=== PATIENT | female | born 1970 | race Caucasian/White ===

== ENCOUNTER 2016-10-26 18:43 | Emergency (ER) | payer OTHER ==
[2016-10-26 18:52] VITALS: BP 126/88; PULSE 94; TEMP 98.3; BMI 32.2
--- NOTE | 2016-10-26 20:15 | PDOC ---
[id number] ABD PAIN Time Seen by Provider: 10/26/16 19:45 - History of Present Illness Initial Comments: 10/26/16 20:42 CHIEF COMPLAINT: Lower abdominal pain HISTORY OF PRESENT ILLNESS: 46-year-old female with history of PID, 2 D&C, prediabetes, and asthma, presents to ED with pain in his lower abdomen. Patient states that 4 days ago she began feeling this discomfort. "I thought I was ovulating, but then it felt like gas in the stomach like I had after having a c- section or something, now it feels like it's in my ovaries. Even when I sit down it feels like something is ready to pop." She denies any sexual activity in the last 2 years but does report having chlamydia and PID "8-10 years ago." She also reports losing 13 pounds in the 2 months to help control her prediabetes. Her LMP was 10/04. No recent travel or sick contacts. PAST MEDICAL HISTORY: Denies past medical history FAMILY HISTORY: Denies SOCIAL HISTORY: Lives at home with family. Current smoker, 6-7 cigarettes daily. Occasional alcoholuse. Marijuana use once a week. SURGICAL HISTORY: 2 D&C ALLERGIES: No known drug allergies REVIEW OF SYSTEMS General/Constitutional: Intentional weight loss. Denies fever or chills. Denies weakness, weight change. HEENT: Denies change in vision. Denies ear pain or discharge. Denies sore throat. Cardiovascular: Denies chest pain or shortness of breath. Respiratory: Denies cough, wheezing, or hemoptysis. Gastrointestinal: Denies nausea, vomiting, diarrhea or constipation. Denies rectal bleeding. Genitourinary: Denies dysuria, frequency, or change in urination. Musculoskeletal: Denies joint or muscle swelling or pain. Denies neck or back pain. Skin and breasts: Denies rash or easy bruising. Neurologic: Denies headache, vertigo, loss of consciousness, or loss of sensation. Endocrine: Denies increased thirst. Denies abnormal weight change. Hematologic/Lymphatic: Denies anemia, easy bleeding, or history of blood clots. Allergic/Immunologic: Denies hives or skin allergy. Denies latex allergy. PHYSICAL EXAM General Appearance: Well-appearing, appropriately dressed. No apparent distress , no intoxication. HEENT: EOMI, PERRLA, normal ENT inspection, normal voice, TMs normal, pharynx normal. No conjunctival pallor. No photophobia, scleral icterus. Neck: Supple. Trachea midline. No tenderness, rigidity, carotid bruit, stridor , lymphadenopathy, or thyromegaly. Respiratory/Chest: Lungs CTAB. No shortness of breath, chest tenderness, respiratory distress, accessory muscle use. No crackles, rales, rhonchi, stridor , wheezing, dullness Cardiovascular: RRR. S1, S2. No JVD, murmur, bradycardia, tachycardia. Vascular Pulses: Dorsalis-Pedis (R): 2+, Dorsalis-Pedis (L): 2+ Gastrointestinal/Abdominal: Tenderness to RLQ and LLQ on palpation. Normal bowel sounds. Abdomen soft, non-distended. No tenderness or rebound tenderness. No organomegaly, pulsatile mass, guarding, hernia, hepatomegaly, splenomegaly. Pelvic: Left adnexal tenderness vs LLQ tenderness. External genitalia normal without lesions. Vaginal vault is clear without blood or discharge. Cervix is long and closed. No cervical motion tenderness. Uterus is nontender and normal in size. Lymphatic: No adenopathy, tenderness. Musculoskeletal/Extremities: Normal inspection. FROM of all extremities, normal capillary refill. Pelvis Stable. No CVA tenderness. No tenderness to extremities, pedal edema, swelling, erythema or deformity. Integumentary: Appropriate color, dry, warm. No cyanosis, erythema, jaundice or rash Neurologic: heel padder II-XII intact. Fully oriented, alert. Appropriate mood/affect. Motor strength 5/5. No appreciable EOM palsy, facial droop or sensory deficit. 10/27/16 00:17 Past History - Past Medical History Allergies/Adverse Reactions: Allergies Allergy/AdvReac Type Severity Reaction Status Date / Time No Known Drug Allergies Allergy Verified 10/26/16 18:48 peanut Allergy Verified 10/26/16 18:52 Home Medications: Ambulatory Orders No Home Medications 0 dose .ROUTE UTDICT 08/23/13 Ciprofloxacin [Cipro -] 500 mg PO Q12H #20 tablet 10/27/16 Metronidazole 500 mg PO TID #30 tablet 10/27/16 Ondansetron [Zofran *Odt*] 8 mg SL BID PRN #10 od.tablet 10/27/16 Anemia: No Asthma: Yes Cancer: No Cardiac Disorders: No CVA: No COPD: No CHF: No Dementia: No Diabetes: Yes (H/O 2010, BS UNDER CONTROL WITH DIET/EXERCISE) GI Disorders: No Disorders: No HTN: No Hypercholesterolemia: No Liver Disease: Yes ("fatty liver") Psychiatric Problems: Yes (ANXIETY) Seizures: No Thyroid Disease: No - Surgical History Abdominal Surgery: Yes (D&C FOR MISSED ABX2) Appendectomy: No Cardiac Surgery: No Cholecystectomy: No Lung Surgery: No Neurologic Surgery: No Orthopedic Surgery: No - Reproductive History (#): 11 Para: 5 Therapeutic (s) & number: Yes (3) Spontaneous : 3 - Immunization History Immunization Up to Date: Yes - Psycho/Social/Smoking Cessation Hx Anxiety: No Suicidal Ideation: No Smoking Status: Yes Smoking History: Current every day smoker Have you smoked in the past 12 months: Yes Number of Cigarettes Smoked Daily: 6 If you are a former smoker, when did you quit?: 2004 Information on smoking cessation initiated: Yes 'Breaking Loose' booklet given: 10/26/16 Hx Alcohol Use: No Drug/Substance Use Hx: No Substance Use Type: None Hx Substance Use Treatment: No *Physical Exam - Vital Signs Last Vital Signs Temp Pulse Resp BP Pulse Ox 98.3 F 94 H 18 126/88 100 10/26/16 18:48 10/26/16 18:48 10/26/16 18:48 10/26/16 18:48 10/26/16 18:48 ED Treatment Course - LABORATORY CBC & Chemistry Diagram: 10/26/16 20:37 Medical Decision Making - Medical Decision Making 10/27/16 22:17 6-year-old female with history of PID, 2 D&C, prediabetes, and asthma, presents to ED with pain in his lower abdomen. -CBC, CMP, lipase, UA, UCx, Upreg -Abdomen & pelvis CT with contrast 10/27/16 11:45 Urine was not sent. Patient agitated, states she would like to leave AMA. Advised patient to remain in ED for CT, will order serum preg for quick results to send patient to CT. Serum negative. Patient to go to CT. CT suggestive of dievrticulitis. Will dischrage to home with Flagyl and Cipro. Advised patient to take meds as prescribed and f/u with GI. Advised patient of signs and symptoms for return to ED; patient verbalized understnading and agrees to plan. *DC/Admit/Observation/Transfer Diagnosis at time of Disposition: Diverticulitis Qualifiers: Diverticulitis site: unspecified part of intestinal tract Diverticulitis bleeding: without bleeding Diverticulitis complication: without perforation or abscess Qualified Code(s): K57.92 - Diverticulitis of intestine, part unspecified, without perforation or abscess without bleeding - Discharge Dispostion Disposition: HOME Admit: No - Prescriptions Prescriptions: Ciprofloxacin [Cipro -] 500 mg PO Q12H #20 tablet Metronidazole 500 mg PO TID #30 tablet Ondansetron [Zofran *Odt*] 8 mg SL BID PRN #10 od.tablet PRN Reason: Nausea And/Or Vomiting - Referrals Referrals: Femi Javier [Primary Care Provider] - - Patient Instructions Printed Discharge Instructions: DI for Diverticulitis Additional Instructions: Please follow up with your primary care doctor next week. If you experience fever, nausea, vomiting, diarrhea, rectal bleeding, dark stool, or any new or worsening symptoms, please return to the ER immediately.
--- NOTE | 2016-10-26 20:35 | PDOC ---
*Physical Exam - Vital Signs Last Vital Signs Temp Pulse Resp BP Pulse Ox 98.3 F 94 H 18 126/88 100 10/26/16 18:48 10/26/16 18:48 10/26/16 18:48 10/26/16 18:48 10/26/16 18:48 ED Treatment Course - LABORATORY CBC & Chemistry Diagram: 10/26/16 20:37 Medical Decision Making - Medical Decision Making 10/26/16 20:34 Pt seen by the Advanced Practice Provider under my direct supervision Ancillary studies reviewed I agree with plan as outlined by the Advanced Practice Provider MILES Perez *DC/Admit/Observation/Transfer Diagnosis at time of Disposition: Diverticulitis - Discharge Dispostion Disposition: HOME - Prescriptions Prescriptions: Ciprofloxacin [Cipro -] 500 mg PO Q12H #20 tablet Metronidazole 500 mg PO TID #30 tablet Ondansetron [Zofran *Odt*] 8 mg SL BID PRN #10 od.tablet PRN Reason: Nausea And/Or Vomiting - Referrals Referrals: Femi Javier [Primary Care Provider] - - Patient Instructions Printed Discharge Instructions: DI for Diverticulitis Additional Instructions: Please follow up with your primary care doctor next week. If you experience fever, nausea, vomiting, diarrhea, rectal bleeding, dark stool, or any new or worsening symptoms, please return to the ER immediately.
[2016-10-26 21:09] LABS: ALBUMIN 3.5 g/dl (3.4-5.0); ANION GAP 7 (8-16); CO2 27 mmol/L (21-32); GLUCOSE,RANDOM 100 mg/dL (74-106)
[2016-10-26 21:12] LABS: ALK PHOS 67 U/L (45-117); BILIRUBIN,TOTAL 0.5 mg/dL (0.2-1.0); CREATININE 0.5 mg/dL (0.55-1.02); SGOT/AST 11 U/L (15-37); SGPT/ALT 25 U/L (12-78)
== END 2016-10-27 01:36 | disposition home or self-care (01) ==
LOC: JER 18:43
DX: K57.20 Diverticulitis of large intestine with perforation and abscess without bleeding (principal); R73.03 Prediabetes; J45.909 Unspecified asthma, uncomplicated; Z87.42 Personal history of other diseases of the female genital tract
CPT/HCPCS: 36415; 74177-TC; 80053; 83690; 84702; 84703; 87491; 87591; 99282-25

== ENCOUNTER 2017-04-26 14:52 | Emergency (ER) | payer OTHER ==
[2017-04-26 15:08] VITALS: BMI 33.6
[2017-04-26 15:50] VITALS: PULSE 74
--- NOTE | 2017-04-26 16:32 | PDOC ---
Attending Attestation - Resident Resident Name: Lobo Mcfarland - ED Attending Attestation I have performed the following: I have examined & evaluated the patient, The case was reviewed & discussed with the resident, I agree w/resident's findings & plan, Exceptions are as noted - HPI HPI: 04/26/17 16:29 46y F hx of asthma presents with 3 days of itnermittent palpitations, pt feels a skipped beat occasionally throughout the day. Pt denies associated chest pain , sob, lightheadedness, diarrhea, abd pain, back pain, headache, fever/chills, melena, bpr, weight loss, sweats, hairloss increased vaginal bleeding. Pt had workup from cardiology with holter monitor for the same sypmtoms that was negative. Constitutional - no reported Fever, Chills, HEENT: no reported vision changes, sore throat Respiratory: no reported cough, sob, hemoptysis Cardiac: +palpitations no reported chest pain, , light headedness, leg swelling Abd/GI: no reported abd pain, nausea, vomiting, blood per rectum, melena, diarrhea : no reported dysuria, frequency, discharge Musculskelatal - no reported back pain, joint swelling skin - no reported bruising, erythema, rash neurological: no reported headache, numbness, focal weakness, tingling, ataxia, hematologic: no reported anemia, easy bruising, easy bleeding GENERAL: The patient is awake, alert, and fully oriented, Nontoxic - in no acute distress. HEAD: Normocephalic, atraumatic. EYES: extraocular movements intact, sclera anicteric, conjunctiva clear. ENT: Normal voice, Moist mucous membranes. NECK: Normal range of motion, supple LUNGS: Breath sounds equal, clear to auscultation bilaterally. No wheezes, no rhonchi, no rales. HEART: Regular rate and rhythm, normal S1 and S2 without murmur, rub or gallop. ABDOMEN: Soft, nontender, normoactive bowel sounds. No guarding, no rebound. . No CVA tenderness EXTREMITIES: Normal range of motion, no edema. No clubbing or cyanosis. No cords, erythema, or tenderness. NEUROLOGICAL: No facial assymetry, Normal speech, moving all 4 extremities spontaneously and symmetrically PSYCH: Normal mood, normal affect. SKIN: Warm, Dry, normal turgor, - Physicial Exam PE: 04/26/17 20:01 see abovfe - Medical Decision Making 04/26/17 20:01 no signs of anemia, metabolic derengement ekg wnl withotu signs of arrythmia no cp/exertional symptoms to suggest angina cp pt agrees with PMD/cards fu for holter defer labs for now return precautions were discussed Heart Score/ECG Review - ECG Impressions Comment:: 04/26/17 16:48 Twelve-lead EKG was performed and reviewed by me. There is normal sinus rhythm with a normal rate. Rate of 79 The axis is normal. The intervals are normal. There is normal R wave progression There are no ST or T wave abnormalities. Impression: Normal twelve-lead EKG
--- NOTE | 2017-04-26 16:48 | PDOC ---
History of Present Illness - General Chief Complaint: Palpitations Stated Complaint: PALPITATIONS Time Seen by Provider: 04/26/17 15:20 - History of Present Illness Initial Comments: 04/26/17 16:49 46 year old female with PMH of asthma, bipolar disorder, and anxiety disorder presenting with palpitations for the past two days. She describes these palpitations that she first experienced 3 years ago as random skipped heart beats that are more frequent before going to bed and that she notices at night. Denies any lightheadeness, presnycopal sensation, chest pain, or other sick symptoms. She has been evaluated on a holter monitor three years ago without finding any cardiac issue and has been symptom free until just two days ago. Of note her children are returning home this weekend and she has been preparing for them to return. Her PCP is Dr. Javier and breakdown mill operator is Akash. Past History - Past Medical History Allergies/Adverse Reactions: Allergies Allergy/AdvReac Type Severity Reaction Status Date / Time No Known Drug Allergies Allergy Verified 04/26/17 15:05 peanut Allergy Verified 04/26/17 15:05 Home Medications: Ambulatory Orders No Home Medications 0 dose .ROUTE UTDICT 08/23/13 Ciprofloxacin [Cipro -] 500 mg PO Q12H #20 tablet 10/27/16 Metronidazole 500 mg PO TID #30 tablet 10/27/16 Ondansetron [Zofran *Odt*] 8 mg SL BID PRN #10 od.tablet 10/27/16 Anemia: No Asthma: Yes Cancer: No Cardiac Disorders: No CVA: No COPD: No CHF: No Dementia: No Diabetes: Yes (H/O 2010, BS UNDER CONTROL WITH DIET/EXERCISE) GI Disorders: No Disorders: No HTN: No Hypercholesterolemia: No Liver Disease: Yes ("fatty liver") Psychiatric Problems: Yes (ANXIETY) Seizures: No Thyroid Disease: No - Surgical History Abdominal Surgery: Yes (D&C FOR MISSED ABX2) Appendectomy: No Cardiac Surgery: No Cholecystectomy: No Lung Surgery: No Neurologic Surgery: No Orthopedic Surgery: No - Reproductive History (#): 11 Para: 5 Therapeutic (s) & number: Yes (3) Spontaneous : 3 - Immunization History Immunization Up to Date: Yes - Psycho/Social/Smoking Cessation Hx Anxiety: No Suicidal Ideation: No Smoking Status: Yes Smoking History: Current every day smoker Have you smoked in the past 12 months: Yes Number of Cigarettes Smoked Daily: 6 If you are a former smoker, when did you quit?: 2004 Information on smoking cessation initiated: No 'Breaking Loose' booklet given: 10/26/16 Hx Alcohol Use: No Drug/Substance Use Hx: No Substance Use Type: None Hx Substance Use Treatment: No Review of Systems - Review of Systems Constitutional: No: Chills, Diaphoresis, Fever HEENTM: No: Blurred Vision, Tearing, Recent change in vision Respiratory: No: Cough, Orthopnea, Shortness of Breath Cardiac (ROS): No: Chest Pain, Irregular Heart Rate, Lightheadedness ABD/GI: No: Abdominal Distended, Constipated, Diarrhea, Difficulty Swallowing, Nausea, Poor Appetite : No: Burning, Dysuria, Hematuria Musculoskeletal: No: Back Pain, Joint Pain, Muscle Pain Integumentary: No: Bruising, Change in Color, Erythema Neurological: No: Headache, Numbness, Paresthesia Psychiatric: Yes: Anxiety. No: Change in Appetite Endocrine: No: Excessive Sweating, Flushing Hematologic/Lymphatic: No: Anemia, Easy Bruising *Physical Exam - Vital Signs Last Vital Signs Temp Pulse Resp BP Pulse Ox 99 F 74 16 142/73 98 04/26/17 15:06 04/26/17 15:46 04/26/17 15:46 04/26/17 15:06 04/26/17 15:46 - Physical Exam General Appearance: Yes: Nourished, Appropriately Dressed. No: Apparent Distress HEENT: positive: EOMI, ЕЛЕНА, Normal Voice Neck: positive: Trachea midline. negative: Tender Respiratory/Chest: positive: Lungs Clear, Normal Breath Sounds. negative: Chest Tender, Respiratory Distress, Accessory Muscle Use Cardiovascular: positive: Regular Rhythm, Regular Rate, S1, S2. negative: Edema , JVD Gastrointestinal/Abdominal: positive: Normal Bowel Sounds, Flat, Soft. negative : Tender, Organomegaly, Pulsatile Mass Musculoskeletal: positive: Normal Inspection, CVA Tenderness Extremity: positive: Normal Inspection, Normal Range of Motion Neurologic: positive: Fully Oriented, Alert, Normal Mood/Affect Medical Decision Making - Medical Decision Making 46 year old healthy female presenting with acute on chronic palpitations. These occurred last approximately three years ago and have no associated symptoms. She came in because they have been consistent over the past two days. EKG and tele monitor have not showed PVCs or any other arrythmia. We will discharge her with follow up with her PCP and breakdown mill operator for another Holter monitor evaluation. 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 04/26/17 16:59 *DC/Admit/Observation/Transfer Diagnosis at time of Disposition: Palpitations - Discharge Dispostion Disposition: HOME Condition at time of disposition: Improved Admit: No - Referrals Referrals: Femi Javier [Primary Care Provider] - Juno Guaman MD [Staff Physician] - - Patient Instructions Printed Discharge Instructions: DI for Palpitations Additional Instructions: You were seen because you had some heart palpitations that we looked at on an EKG and did not see any evidence of abnormal heart rhythm. We believe that you should follow up with your breakdown mill operator for this. Please return if your heart palpitations get worse or you have new symptoms. - Attestations Physician Attestion: 04/26/17 16:59 I, Dr. Lobo Mcfarland, attest that this document has been prepared under my direction and personally reviewed by me in its entirety. I further attest, that it accurately reflects all work, treatment, procedures and medical decision -making performed by me. 04/26/17 17:06
[2017-04-26 17:11] VITALS: BP 123/72; TEMP 98.6
--- NOTE | 2017-04-28 13:57 | EKG ---
Test Reason : Blood Pressure : / mmHG Vent. Rate : 079 BPM Atrial Rate : 079 BPM P-R Int : 126 ms QRS Dur : 084 ms QT Int : 382 ms P-R-T Axes : 025 010 019 degrees QTc Int : 438 ms NORMAL SINUS RHYTHM NORMAL ECG WHEN COMPARED WITH ECG OF 23-AUG-2013 07:40, NO SIGNIFICANT CHANGE WAS FOUND Confirmed by DAV JAMES MD ([id number]) on 04/28/2017 1:56:50 PM Referred By: Confirmed By:DAV JAMES MD
== END 2017-04-26 17:11 | disposition home or self-care (01) ==
LOC: JER 14:52
DX: R00.2 Palpitations (principal); F17.210 Nicotine dependence, cigarettes, uncomplicated; K76.0 Fatty (change of) liver, not elsewhere classified; F41.9 Anxiety disorder, unspecified; J45.909 Unspecified asthma, uncomplicated; E11.9 Type 2 diabetes mellitus without complications
CPT/HCPCS: 93005; 93010; 99283-25

== ENCOUNTER 2017-07-24 10:21 | Emergency (ER) | payer OTHER ==
[2017-07-24 10:28] VITALS: BP 131/71; PULSE 95; TEMP 99; BMI 32.5
--- NOTE | 2017-07-24 11:10 | PDOC ---
History of Present Illness - General Chief Complaint: Ear Problem Stated Complaint: EAR PAIN Time Seen by Provider: 07/24/17 10:46 History Source: Patient Exam Limitations: No Limitations - History of Present Illness Initial Comments: 07/24/17 11:02 Patient is a 46-year-old female, no significant medical history currently on no medication presents with bilateral ear pain feels that ear canals swelling[place] Past Medical History: Denies. Allergies: No known allergies Medications: Family History: Non-contributory Social History: Denies smoking, alcohol use, or IVDU Review of Systems GENERAL/CONSTITUTIONAL: No fever or chills. No weakness. No weight change. HEAD, EYES, EARS, NOSE AND THROAT: No change in vision. Bilateral ear pain with no discharge. No sore throat. CARDIOVASCULAR: No chest pain or shortness of breath. RESPIRATORY: No cough, wheezing, or hemoptysis. GASTROINTESTINAL: No nausea, vomiting, diarrhea or constipation. No rectal bleeding. GENITOURINARY: No dysuria, frequency, or change in urination. MUSCULOSKELETAL: No joint or muscle swelling or pain. No neck or back pain. SKIN AND BREASTS: No rash or easy bruising. NEUROLOGIC: No headache, vertigo, loss of consciousness, or loss of sensation. PSYCHIATRIC: No depression or anxiety. ENDOCRINE: No increased thirst. No abnormal weight change. HEMATOLOGIC/LYMPHATIC: No anemia, easy bleeding, or history of blood clots. ALLERGIC/IMMUNOLOGIC: No hives or skin allergy. No latex allergy. Physical Exam: GENERAL: The patient is awake, alert, and fully oriented, in no acute distress. HEAD: Normal with no signs of trauma. EYES: Pupils equal, round and reactive to light, extraocular movements intact, sclera anicteric, conjunctiva clear. ENT: Bilateral ear canal edema, nares patent, oropharynx clear without exudates. Moist mucous membranes. No uvula deviation NECK: Normal range of motion, supple without lymphadenopathy, JVD, or masses. LUNGS: Breath sounds equal, clear to auscultation bilaterally. No wheezes, and no crackles. HEART: Regular rate and rhythm, normal S1 and S2 without murmur, rub or gallop. ABDOMEN: Soft, nontender, normoactive bowel sounds. No guarding, no rebound. No masses. No bruising or abrasions MUSCULOSKELETAL: Normal range of motion, no edema. No clubbing or cyanosis. No cords, erythema, or tenderness. No CVA Tenderness with fist. NEUROLOGICAL: Cranial nerves II through XII grossly intact. Normal speech, normal gait. SKIN: Warm, Dry, normal turgor, no rashes or lesions noted. 07/24/17 11:35 Past History - Past Medical History Allergies/Adverse Reactions: Allergies Allergy/AdvReac Type Severity Reaction Status Date / Time No Known Drug Allergies Allergy Verified 07/24/17 10:28 peanut Allergy Verified 07/24/17 10:28 Home Medications: Ambulatory Orders Amox-Tr/K Cl [Augmentin - 875Mg Tablet] 1 tab PO BID #14 tablet 07/24/17 Ciprofloxacin HCl/Dexameth [Ciprodex Otic Suspension] 3 drop AU BID #1 bottle Anemia: No Asthma: Yes Cancer: No Cardiac Disorders: No CVA: No COPD: No CHF: No Dementia: No Diabetes: Yes (H/O 2010, BS UNDER CONTROL WITH DIET/EXERCISE) GI Disorders: No Disorders: No HTN: No Hypercholesterolemia: No Liver Disease: Yes ("fatty liver") Psychiatric Problems: Yes (ANXIETY) Seizures: No Thyroid Disease: No - Surgical History Abdominal Surgery: Yes (D&C FOR MISSED ABX2) Appendectomy: No Cardiac Surgery: No Cholecystectomy: No Lung Surgery: No Neurologic Surgery: No Orthopedic Surgery: No - Reproductive History (#): 11 Para: 5 Therapeutic (s) & number: Yes (3) Spontaneous : 3 - Immunization History Immunization Up to Date: Yes - Suicide/Smoking/Psychosocial Hx Smoking Status: Yes Smoking History: Current every day smoker Have you smoked in the past 12 months: Yes Number of Cigarettes Smoked Daily: 5 If you are a former smoker, when did you quit?: 2004 Information on smoking cessation initiated: No 'Breaking Loose' booklet given: 07/24/17 Hx Alcohol Use: No Drug/Substance Use Hx: No Substance Use Type: None Hx Substance Use Treatment: No *Physical Exam - Vital Signs Last Vital Signs Temp Pulse Resp BP Pulse Ox 99 F 95 H 18 131/71 98 07/24/17 10:25 07/24/17 10:25 07/24/17 10:25 07/24/17 10:25 07/24/17 10:25 Medical Decision Making - Medical Decision Making 07/24/17 11:10 A/P: Patient here with bilateral otitis externa, will DC patient on Cipro based eardrops and Augmentin because of severity in bilateral canals. Follow-up with ENT. I discussed the physical exam findings, ancillary test results and final diagnoses with the patient. I answered all of the patient's questions. The patient was satisfied with the care received and felt comfortable with the discharge plan and treatment plan. The patient will call to arrange follow-up and will return to the Emergency Department with any new, persistent or worsening symptoms. 07/24/17 11:35 *DC/Admit/Observation/Transfer Diagnosis at time of Disposition: Otitis externa Qualifiers: Otitis externa type: swimmer's ear Chronicity: acute Laterality: bilateral Qualified Code(s): H60.333 - Swimmer's ear, bilateral - Discharge Dispostion Disposition: HOME Condition at time of disposition: Good Admit: No - Prescriptions Prescriptions: Amox-Tr/K Cl [Augmentin - 875Mg Tablet] 1 tab PO BID #14 tablet Ciprofloxacin HCl/Dexameth [Ciprodex Otic Suspension] 3 drop AU BID #1 bottle - Referrals Referrals: Peña Christie MD [Staff Physician] - - Patient Instructions Printed Discharge Instructions: DI for Otitis Externa - Post Discharge Activity Forms/Work/School Notes: Back to Work
== END 2017-07-24 11:14 | disposition home or self-care (01) ==
LOC: JERFT 10:21
DX: H60.333 Swimmer's ear, bilateral (principal); F17.210 Nicotine dependence, cigarettes, uncomplicated; E11.9 Type 2 diabetes mellitus without complications; F41.9 Anxiety disorder, unspecified; J45.909 Unspecified asthma, uncomplicated
CPT/HCPCS: 99281-25

== ENCOUNTER 2017-08-03 09:40 | Emergency (ER) | payer OTHER ==
[2017-08-03 09:49] VITALS: BP 144/77; PULSE 102; TEMP 98.7; BMI 31.9
[2017-08-03] MEDS ORDERED: predniSONE 20 MG TABLET (UD) PO ONE (10:23)
[2017-08-03] MEDS ORDERED: ALBUTEROL SO4 2.5/IPRATROPIUM 0.5 INH SOL 3 ML VIAL.NEB. NEB ONE (10:23)
--- NOTE | 2017-08-03 10:24 | PDOC ---
History of Present Illness - General Chief Complaint: Respiratory Stated Complaint: SOB (ASTHMA) Time Seen by Provider: 08/03/17 10:01 History Source: Patient Exam Limitations: No Limitations - History of Present Illness Initial Comments: 08/03/17 10:26 My chief complaint: Productive cough, wheezing, shortness of breath 3 days History of present illness: Patient is a 46-year-old female with a history of asthma, anxiety, diet-controlled diabetes, fatty liver here today complaining of productive cough with greenish phlegm, wheezing, shortness of breath even at rest for the last 3 days. Patient reports that she's been using the nebulizer every 4 hours and the pump in between nebulizer treatments with out relief of symptoms. Patient denies any fever, nausea vomiting diarrhea. Patient reports that her sister was sick with similar symptoms. Patient denies any chance of has had no relations for 2 years. Timing/Duration: getting worse (3 days ) Severity: moderate Associated Symptoms: reports: cough (productive green), shortness of breath Past History - Past Medical History Allergies/Adverse Reactions: Allergies Allergy/AdvReac Type Severity Reaction Status Date / Time No Known Drug Allergies Allergy Verified 08/03/17 09:49 peanut Allergy Verified 08/03/17 09:49 Home Medications: Ambulatory Orders Albuterol 0.083% Nebulizer Aimee [Ventolin 0.083% Nebulizer Soln -] 1 neb NEB Q4H PRN #1 vial 08/03/17 Albuterol Sulfate Inhaler - [Ventolin HFA Inhaler -] 2 inh PO Q4H PRN #1 inh Azithromycin [Zithromax 250mg Tablets -] 250 mg PO UTDICT #6 tab 08/03/17 Prednisone [Deltasone -] 20 mg PO BID #8 tablet 08/03/17 Anemia: No Asthma: Yes Cancer: No Cardiac Disorders: No CVA: No COPD: No CHF: No Dementia: No Diabetes: Yes (H/O 2010, BS UNDER CONTROL WITH DIET/EXERCISE) GI Disorders: No Disorders: No HTN: No Hypercholesterolemia: No Liver Disease: Yes ("fatty liver") Psychiatric Problems: Yes (ANXIETY) Seizures: No Thyroid Disease: No - Surgical History Abdominal Surgery: Yes (D&C FOR MISSED ABX2) Appendectomy: No Cardiac Surgery: No Cholecystectomy: No Lung Surgery: No Neurologic Surgery: No Orthopedic Surgery: No - Reproductive History (#): 11 Para: 5 Therapeutic (s) & number: Yes (3) Spontaneous : 3 - Immunization History Immunization Up to Date: Yes - Suicide/Smoking/Psychosocial Hx Smoking Status: Yes Smoking History: Former smoker Have you smoked in the past 12 months: Yes Number of Cigarettes Smoked Daily: 5 If you are a former smoker, when did you quit?: 1 DAY AGO Information on smoking cessation initiated: Yes 'Breaking Loose' booklet given: 08/03/17 Hx Alcohol Use: No Drug/Substance Use Hx: No Substance Use Type: None Hx Substance Use Treatment: No Review of Systems - Review of Systems Able to Perform ROS?: Yes Constitutional: No: Symptoms Reported HEENTM: No: Symptoms Reported Respiratory: Yes: Shortness of Breath, SOB with Exertion, SOB at Rest, Wheezing , Productive cough (greenish for 3 days). No: Orthopnea, Stridor Cardiac (ROS): No: Symptoms Reported ABD/GI: No: Symptoms Reported : No: Symptoms Reported Musculoskeletal: No: Symptoms Reported Integumentary: No: Symptoms Reported Neurological: No: Symptoms reported *Physical Exam - Vital Signs Last Vital Signs Temp Pulse Resp BP Pulse Ox 98.7 F 102 H 22 144/77 98 08/03/17 09:46 08/03/17 09:46 08/03/17 09:46 08/03/17 09:46 08/03/17 09:46 - Physical Exam General Appearance: Yes: Appropriately Dressed HEENT: positive: Normal ENT Inspection Neck: negative: Lymphadenopathy (R), Lymphadenopathy (L) Respiratory/Chest: positive: Crackles, Rhonchi, Wheezing (diffuse). negative: Accessory Muscle Use, Labored Respiration Cardiovascular: positive: Regular Rhythm, Regular Rate, S1, S2 Integumentary: positive: Normal Color Neurologic: positive: Alert, Normal Response Medical Decision Making - Medical Decision Making 08/03/17 10:28 Patient is a 46-year-old female with a history of asthma, anxiety, diet- controlled diabetes, fatty liver here today complaining of productive cough with greenish phlegm, wheezing, shortness of breath even at rest for the last 3 days. Patient reports that she's been using the nebulizer every 4 hours and the pump in between nebulizer treatments with out relief of symptoms. Patient denies any fever, nausea vomiting diarrhea. Patient reports that her sister was sick with similar symptoms. Patient denies any chance of has had no relations for 2 years. Asthma exacerbation Plan: DuoNeb now Prednisone 60 mg by mouth now then 20 mg twice a day for following 4 days Azithromycin 250 mg 2 tabs today then 1 tab daily for following 4 days XRAY CHEST PA/LATERAL NO INFILTRATE NOTED PER DR. CARDENAS 08/03/17 11:35 ALBUTEROL HFA 2 PUFFS EVERY 4 HRS PRH WHEEZING/SOB 08/03/17 13:30 lungs CTA b/l after neb *DC/Admit/Observation/Transfer Diagnosis at time of Disposition: Asthma exacerbation Qualifiers: Asthma severity: unspecified severity Asthma persistence: unspecified Qualified Code(s): J45.901 - Unspecified asthma with (acute) exacerbation - Discharge Dispostion Disposition: HOME Condition at time of disposition: Stable - Prescriptions Prescriptions: Prednisone [Deltasone -] 20 mg PO BID #8 tablet Albuterol 0.083% Nebulizer Aimee [Ventolin 0.083% Nebulizer Soln -] 1 neb NEB Q4H PRN #1 vial PRN Reason: Short Of Breath/Wheezing Albuterol Sulfate Inhaler - [Ventolin HFA Inhaler -] 2 inh PO Q4H PRN #1 inh PRN Reason: Short Of Breath/Wheezing Azithromycin [Zithromax 250mg Tablets -] 250 mg PO UTDICT #6 tab - Referrals Referrals: Femi Javier [Primary Care Provider] - - Patient Instructions Additional Instructions: DRINK A lot of fluids and rest Follow-up with your primary care provider within days. Return to emergency room if any difficulty breathing Patient voiced understanding of discharge instructions and all questions were answered
[2017-08-03] MEDS ORDERED: predniSONE 20 MG TABLET (UD) ONE (10:34)
== END 2017-08-03 11:48 | disposition home or self-care (01) ==
LOC: JERFT 09:40
PROC: 3E0F7GC Introduction of Other Therapeutic Substance into Respiratory Tract, Via Natural or Artificial Opening (ICD-10-PCS; principal; 2017-08-03)
DX: J45.901 Unspecified asthma with (acute) exacerbation (principal); E11.9 Type 2 diabetes mellitus without complications; F41.9 Anxiety disorder, unspecified; K76.0 Fatty (change of) liver, not elsewhere classified
CPT/HCPCS: 71020-TC; 94640; 99281-25

== ENCOUNTER 2017-12-17 09:24 | Emergency (ER) | payer OTHER ==
[2017-12-17 09:52] VITALS: BMI 33.5
[2017-12-17] MEDS ORDERED: KETOROLAC TROMETHAMINE 60 MG/2 ML VIAL IM ONE (10:40)
[2017-12-17] MEDS ORDERED: traMADol HCL 50 MG TABLET PO ONE (10:40)
[2017-12-17] MEDS ORDERED: KETOROLAC TROMETHAMINE 60 MG/2 ML VIAL ONE (10:42)
[2017-12-17] MEDS ORDERED: traMADol HCL 50 MG TABLET ONE (10:42)
--- NOTE | 2017-12-17 10:51 | PDOC ---
History of Present Illness - General History Source: Patient Exam Limitations: No Limitations - History of Present Illness Initial Comments: 12/17/17 11:24 The patient 47-year-old female, with a significant past medical history of asthma and sciatica, who presents to the ED with 2 days of worsening right- sided mid back pain. The patient states her pain began 2 days after a deep tissue massage. The patient initially noted some discomfort in the area which has progressively worsened since then. The patient rates the pain a 10/10 in severity, exacerbated with changes in position (arm lifting and torso twisting) and deep inspiration, and accompanied by shortness of breath (only when standing upright). She reports taking 800mg of Motrin before bed last night, with no relief of her symptoms. The patient denies any fever, chills, nausea, vomiting, diarrhea, or abdominal pain. Denies any urinary changes. Denies any chest pain. Allergies: NKDA, peanuts, shellfish derived Surgical History: D&C for 2 missed abortions Social History: No reported tobacco, alcohol, or drug use. PCP: Dr. Femi Javier <Concetta Reagan - Last Filed: 12/17/17 11:25> <Maurizio Marte - Last Filed: 12/17/17 12:40> - General Chief Complaint: Back Pain Stated Complaint: RT SIDE PAIN/ SOB Time Seen by Provider: 12/17/17 10:04 Past History <Concetta Reagan - Last Filed: 12/17/17 11:25> - Past Medical History Anemia: No Asthma: Yes Cancer: No Cardiac Disorders: No CVA: No COPD: No CHF: No Dementia: No Diabetes: Yes (H/O 2010, BS UNDER CONTROL WITH DIET/EXERCISE) GI Disorders: No Disorders: No HTN: No Hypercholesterolemia: No Liver Disease: Yes ("fatty liver") Psychiatric Problems: Yes (ANXIETY) Seizures: No Thyroid Disease: No - Surgical History Abdominal Surgery: Yes (D&C FOR MISSED ABX2) Appendectomy: No Cardiac Surgery: No Cholecystectomy: No Lung Surgery: No Neurologic Surgery: No Orthopedic Surgery: No - Reproductive History (#): 11 Para: 5 Therapeutic (s) & number: Yes (3) Spontaneous : 3 - Immunization History Immunization Up to Date: Yes - Suicide/Smoking/Psychosocial Hx Smoking Status: Yes Smoking History: Current every day smoker Have you smoked in the past 12 months: Yes Number of Cigarettes Smoked Daily: 7 If you are a former smoker, when did you quit?: 1 DAY AGO Information on smoking cessation initiated: No 'Breaking Loose' booklet given: 08/03/17 Hx Alcohol Use: No Drug/Substance Use Hx: Yes (Marijuana) Substance Use Type: Marijuana Hx Substance Use Treatment: No <Maurizio Marte - Last Filed: 12/17/17 12:40> - Past Medical History Allergies/Adverse Reactions: Allergies Allergy/AdvReac Type Severity Reaction Status Date / Time No Known Drug Allergies Allergy Verified 12/17/17 09:47 peanut Allergy Verified 12/17/17 09:47 shellfish derived Allergy Verified 12/17/17 09:47 Home Medications: Ambulatory Orders Albuterol 0.083% Nebulizer Aimee [Ventolin 0.083% Nebulizer Soln -] 1 neb NEB Q4H PRN #1 vial 08/03/17 Albuterol Sulfate Inhaler - [Ventolin HFA Inhaler -] 2 inh PO Q4H PRN #1 inh Naproxen 500 mg PO BID PRN #20 tablet 12/17/17 Tramadol HCl [Ultram] 50 mg PO TID PRN #10 tablet MDD 3 tabs 12/17/17 Review of Systems - Review of Systems Able to Perform ROS?: Yes <Concetta Reagan - Last Filed: 12/17/17 11:25> - Review of Systems Constitutional: No: Chills, Fever Respiratory: No: Cough, Shortness of Breath Cardiac (ROS): No: Chest Pain : No: Dysuria, Flank Pain, Hematuria Musculoskeletal: Yes: Muscle Pain (R mid back pain) Integumentary: No: Rash All Other Systems: Reviewed and Negative <Maurizio Marte - Last Filed: 12/17/17 12:40> *Physical Exam - Vital Signs Last Vital Signs Temp Pulse Resp BP Pulse Ox 97.9 F 82 16 129/44 99 12/17/17 09:48 12/17/17 09:48 12/17/17 09:48 12/17/17 09:48 12/17/17 09:48 - Physical Exam Comments: 12/17/17 11:27 GENERAL: The patient is awake, alert, and fully oriented, in no acute distress. HEAD: Normal with no signs of trauma. EYES: Pupils equal, round and reactive to light, extraocular movements intact, sclera anicteric, conjunctiva clear with no pallor. ENT: Ears normal, nares patent, oropharynx clear without exudates. Moist mucous membranes. NECK: Normal range of motion, supple without lymphadenopathy, JVD, or masses. LUNGS: Breath sounds equal, clear to auscultation bilaterally. No wheeze/ crackles. HEART: Regular rate and rhythm, normal S1 and S2 without murmur or rub. ABDOMEN: Soft/nontender/nondistended. BS wnl. No guarding or rebound. No palpable masses. No hepatosplenomegaly. EXTREMITIES: Normal range of motion, no edema. No clubbing or cyanosis. No cords, erythema, or tenderness. MUSCULOSKELETAL: (+)Some reproducible discomfort to the right mid-back in the scapula line, around ribs 8 and 9. Reproducible discomfort, mostly with positional changes. No crepitus, no deformity, no CVA tenderness NEUROLOGICAL: Cranial nerves II through XII grossly intact. Normal speech. PSYCH: Normal mood, normal affect. SKIN: Warm, Dry, normal turgor, no rashes or lesions noted. <Concetta Reagan - Last Filed: 12/17/17 11:25> - Vital Signs Last Vital Signs Temp Pulse Resp BP Pulse Ox 97.9 F 82 16 129/44 99 12/17/17 09:48 12/17/17 09:48 12/17/17 09:48 12/17/17 09:48 12/17/17 09:48 <Maurizio Marte - Last Filed: 12/17/17 12:40> ED Treatment Course - Medications Given in the ED: ED Medications Discontinued Medications Generic Name Dose Route Start Last Admin Trade Name Freq PRN Reason Stop Dose Admin Ketorolac Tromethamine 60 mg 12/17/17 10:40 12/17/17 10:52 Toradol Injection - IM 12/17/17 10:41 60 mg ONCE ONE Administration Tramadol HCl 50 mg 12/17/17 10:40 12/17/17 10:52 Ultram - PO 12/17/17 10:41 50 mg ONCE ONE Administration <Concetta Reagan - Last Filed: 12/17/17 11:25> - RADIOLOGY Radiology Studies Ordered: Category Date Time Status CHEST PA & LAT [RAD] Stat Radiology 12/17/17 10:39 Ordered <Maurizio Marte - Last Filed: 12/17/17 12:40> Medical Decision Making - Medical Decision Making 12/17/17 10:52 A portion of this note was documented by scribe services under my direction. I have reviewed the details of the note, within reason, and agree with the documentation with the following case summary and management plan written by me. 47-year-old female with no severe past medical history presents with worsening right mid back pain for 2 days. Symptoms began about one or 2 days after a deep tissue massage, initially noted some discomfort in the region which has progressively worsened. The pain is very positional, worse with deep inspiration and any torso twisting or arm lifting, denies any cough or fevers or chills. No GI or symptoms, took ibuprofen and was able to sleep but presents for evaluation. Vital signs normal. Well-appearing, able to get comfortable in stretcher Heart and lungs are regular and clear Reproducible discomfort with positional changes and palpation in the right mid back, skin is clear without bruising or rib deformity No edema or calf tenderness 47-year-old female with muscle skeletal right mid back pain, likely rib bruise or intercostal muscle strain, less likely fracture. Rule out pneumothorax, no GI or red flags on history or physical exam. Chest x-ray Pain control Reassess 12/17/17 12:35 Chest x-ray normal. Feels much better after medications, ambulating comfortably. Agrees with discharge plan, pain meds for likely rib bruise/intercostal muscle strain, understands return criteria. <Maurizio Marte - Last Filed: 12/17/17 12:40> *DC/Admit/Observation/Transfer - Attestations Scribe Attestion: 12/17/17 11:36 Documentation prepared by Concetta Reagan, acting as medical assistant internal medicine for Maurizio Marte MD. <Concetta Reagan - Last Filed: 12/17/17 11:25> <Maurizio Marte - Last Filed: 12/17/17 12:40> Diagnosis at time of Disposition: Mid back pain on right side - Discharge Dispostion Disposition: HOME Condition at time of disposition: Improved - Prescriptions Prescriptions: Naproxen 500 mg PO BID PRN #20 tablet PRN Reason: Pain Tramadol HCl [Ultram] 50 mg PO TID PRN #10 tablet MDD 3 tabs PRN Reason: Pain - Referrals Referrals: Femi Javier [Primary Care Provider] - - Patient Instructions Printed Discharge Instructions: DI for Rib Contusion Additional Instructions: Activity as tolerated. Stay hydrated. A chest x-ray shows no acute abnormality. As discussed, your symptoms are likely due to a rib or muscle bruise, which should get better over the next 5-7 days. Take naproxen as prescribed for moderate pain, take tramadol as prescribed as needed for severe pain. Tramadol can make you lightheaded, so take proper precautions. Continue your medications as previously prescribed by your physician. You should follow up with your primary doctor as soon as possible regarding today's emergency department visit. Return to the emergency department for any new or concerning symptoms, particularly persistent or worsening pain, redness or rash or swelling, shortness of breath, difficulty urinating or bloody urine.
[2017-12-17 12:50] VITALS: BP 122/71; PULSE 80; TEMP 98
== END 2017-12-17 12:49 | disposition home or self-care (01) ==
LOC: JER 09:24
PROC: 3E0233Z Introduction of Anti-inflammatory into Muscle, Percutaneous Approach (ICD-10-PCS; principal; 2017-12-17)
DX: M54.6 Pain in thoracic spine (principal); E11.9 Type 2 diabetes mellitus without complications; J45.909 Unspecified asthma, uncomplicated; F41.9 Anxiety disorder, unspecified; K76.0 Fatty (change of) liver, not elsewhere classified
CPT/HCPCS: 71046-TC-FY; 99283-25

== ENCOUNTER 2018-06-15 23:06 | Emergency (ER) | payer OTHER ==
[2018-06-15 23:31] VITALS: TEMP 98.7; BMI 32.9
[2018-06-16 00:54] VITALS: BP 141/86; PULSE 63
[2018-06-16 00:59] LABS: BASO % 0.2 % (0-2.0); EOS % 1.9 % (0-4.5); HEMATOCRIT 35.4 % (32.4-45.2); HEMOGLOBIN 11.7 GM/dL (10.7-15.3); LYMPH % 27.6 % (8-40); MCH 27.4 pg (25.7-33.7); MEAN CELL VOLUME 83.2 fl (80-96); MEAN PLT VOLUME 8.9 fl (7.5-11.1); MONO % 6.9 % (3.8-10.2); NEUT % 63.4 % (42.8-82.8); PLATELET COUNT 276 K/MM3 (134-434); RBC 4.25 M/mm3 (3.60-5.2); RDW 13.4 % (11.6-15.6)
[2018-06-16 01:21] LABS: ALBUMIN 3.6 g/dl (3.4-5.0); ANION GAP 6 MMOL/L (8-16); BILIRUBIN,TOTAL 0.2 mg/dL (0.2-1.0); BLOOD UREA NITROGEN 9 mg/dL (7-18); CHLORIDE 106 mmol/L (98-107); CO2 29 mmol/L (21-32); CREATININE 0.7 mg/dL (0.55-1.02); GLUCOSE,RANDOM 102 mg/dL (74-106); POTASSIUM 3.9 mmol/L (3.5-5.1); SGOT/AST 23 U/L (15-37); SGPT/ALT 31 U/L (12-78); SODIUM 141 mmol/L (136-145); TOT PROT 7.4 g/dl (6.4-8.2)
[2018-06-16 01:23] LABS: ALK PHOS 78 U/L (45-117)
--- NOTE | 2018-06-16 01:23 | PDOC ---
History of Present Illness - General History Source: Patient Exam Limitations: No Limitations <Conrado Bennett - Last Filed: 06/16/18 01:40> <JermainElo Jennifer - Last Filed: 06/16/18 02:06> - General Chief Complaint: Chest Pain Stated Complaint: CHEST PAIN Time Seen by Provider: 06/16/18 00:07 - History of Present Illness Initial Comments: 06/16/18 01:35 The patient is a 47 year old female presenting with a friend, with a significant past medical history of pre-diabetes and TB (positive on PPD checks and x-rays are negative), who presents to the ED complaining of chest pain and abdominal pain for the past 2 days. She describes her chest pain as an intermittent tightness, ranging from mild to moderate, without radiation or modifying factors. She notes that she has been diaphoretic intermittently as well. She reports that she recently started 2 new medications, 4 days ago. One medication is a pill to reverse her positive TB tests and the other one is a weekly injection to lose weight called Semaglutide. The patient denies shortness of breath, headache and dizziness. Denies fever, chills, nausea, vomiting, diarrhea or constipation. Denies dysuria, frequency, urgency and hematuria. Allergies: None Past surgical history: D&Cs Social History: 20 + years of tobacco use (quit 6 months ago) (Conrado Bennett) Past History <Conrado Bennett - Last Filed: 06/16/18 01:40> - Past Medical History Anemia: No Asthma: Yes Cancer: No Cardiac Disorders: No CVA: No COPD: No CHF: No DVT: No Dementia: No Diabetes: Yes (H/O 2010, BS UNDER CONTROL WITH DIET/EXERCISE) GI Disorders: No Disorders: No HTN: No Hypercholesterolemia: No Liver Disease: Yes ("fatty liver") Psychiatric Problems: Yes (ANXIETY) Seizures: No Thyroid Disease: No Other medical history: PPD +x 26 years, gets xray [id number]. - Surgical History Abdominal Surgery: Yes (D&C FOR MISSED ABX2) Appendectomy: No Cardiac Surgery: No Cholecystectomy: No Lung Surgery: No Neurologic Surgery: No Orthopedic Surgery: No - Reproductive History (#): 11 Para: 5 Therapeutic (s) & number: Yes (3) Spontaneous : 3 - Immunization History Immunization Up to Date: Yes - Suicide/Smoking/Psychosocial Hx Smoking Status: Yes Smoking History: Never smoked Have you smoked in the past 12 months: Yes Number of Cigarettes Smoked Daily: 7 If you are a former smoker, when did you quit?: 1 DAY AGO Information on smoking cessation initiated: No 'Breaking Loose' booklet given: 08/03/17 Hx Alcohol Use: No Drug/Substance Use Hx: No Substance Use Type: None, Marijuana Hx Substance Use Treatment: No <Elo Aly - Last Filed: 06/16/18 02:06> - Past Medical History Allergies/Adverse Reactions: Allergies Allergy/AdvReac Type Severity Reaction Status Date / Time No Known Drug Allergies Allergy Verified 12/17/17 09:47 peanut Allergy Verified 12/17/17 09:47 shellfish derived Allergy Verified 12/17/17 09:47 Home Medications: Ambulatory Orders Albuterol 0.083% Nebulizer Aimee [Ventolin 0.083% Nebulizer Soln -] 1 neb NEB Q4H PRN #1 vial 08/03/17 Albuterol Sulfate Inhaler - [Ventolin HFA Inhaler -] 2 inh PO Q4H PRN #1 inh Naproxen 500 mg PO BID PRN #20 tablet 12/17/17 Tramadol HCl [Ultram] 50 mg PO TID PRN #10 tablet MDD 3 tabs 12/17/17 Cardiac Specific PMH - Complaint Specific PMHX Pacemaker: No <Elo Aly - Last Filed: 06/16/18 02:06> Review of Systems - Review of Systems Able to Perform ROS?: Yes <Conrado Bennett - Last Filed: 06/16/18 01:40> <Elo Aly - Last Filed: 06/16/18 02:06> - Review of Systems Comments:: 06/16/18 01:37 GENERAL/CONSTITUTIONAL: (+) Diaphoretic. No fever or chills. No weakness. HEAD, EYES, EARS, NOSE AND THROAT: No change in vision. No ear pain or discharge. No sore throat. GASTROINTESTINAL: (+) Abdominal pain. No nausea, vomiting, diarrhea or constipation. GENITOURINARY: No dysuria, frequency, or change in urination. CARDIOVASCULAR: (+) Chest pain. No shortness of breath. RESPIRATORY: No cough, wheezing, or hemoptysis. MUSCULOSKELETAL: No joint or muscle swelling or pain. No neck or back pain. SKIN: No rash NEUROLOGIC: No headache, vertigo, loss of consciousness, or change in strength/ sensation. ENDOCRINE: No increased thirst. No abnormal weight change. HEMATOLOGIC/LYMPHATIC: No anemia, easy bleeding, or history of blood clots. ALLERGIC/IMMUNOLOGIC: No hives or skin allergy. (Conrado Bennett) *Physical Exam <Conrado Bennett - Last Filed: 06/16/18 01:40> <JermainElo Jennifer - Last Filed: 06/16/18 02:06> - Vital Signs Last Vital Signs Temp Pulse Resp BP Pulse Ox 98.7 F 63 17 141/86 99 06/15/18 23:21 06/16/18 00:46 06/16/18 00:46 06/16/18 00:46 06/16/18 00:46 - Physical Exam Comments: 06/16/18 01:37 Constitutional: Awake, alert, oriented. No acute distress. Head: Normocephalic. Atraumatic Eyes: PERRL. EOMI. Conjunctivae are not pale. ENT: Mucous membranes are moist and intact. Posterior pharynx without exudates or erythema. Uvula midline. Neck: Supple. Full ROM. No lymphadenopathy. NO JVD. No Bruits. Cardiovascular: Regular rate. Regular rhythm. S1, S2 regular. Distal pulses are 2+ and symmetric. Pulmonary/Chest: No evidence of respiratory distress. Clear to auscultation bilaterally No wheezing, rales or rhonchi. Abdominal: Protuberant, Soft and non-distended. There is no tenderness. No rebound, guarding or rigidity. No organomegaly. No palpable masses. Good bowel sounds. Back: No CVA tenderness. Musculoskeletal: No edema. No cyanosis. No clubbing. Full range of motion in all extremities. Nocalf tenderness. Radial/pedal pulses are intact and 2+ bilaterally Skin: Skin is warm and dry. No petechiae. No purpura. Neurological: Alert and oriented to person, place, and time. Cranial nerves II -XII are grossly intact. Normal speech. Strength is grossly symmetric. No sensory deficits. Psychiatric: Good eye contact. Normal interaction, affect and behavior. (Conrado Bennett) ED Treatment Course - LABORATORY CBC & Chemistry Diagram: 06/16/18 00:40 06/16/18 00:40 <Conrado Bennett - Last Filed: 06/16/18 01:40> - LABORATORY CBC & Chemistry Diagram: 06/16/18 00:40 06/16/18 00:40 <Elo Aly - Last Filed: 06/16/18 02:06> - ADDITIONAL ORDERS Additional order review: Laboratory Results 06/16/18 06/16/18 06/16/18 01:32 00:40 00:40 Sodium 141 Potassium 3.9 Chloride 106 Carbon Dioxide 29 Anion Gap 6 L BUN 9 Creatinine 0.7 Creat Clearance w eGFR > 60 Random Glucose 102 Calcium 9.0 Total Bilirubin 0.2 AST 23 ALT 31 Alkaline Phosphatase 78 Troponin I < 0.02 Total Protein 7.4 Albumin 3.6 Serum , Qual Negative Urine Color Yellow Urine Appearance Cloudy Urine pH 6.0 Ur Specific Welcome 1.019 Urine Protein Negative Urine Glucose (UA) Negative Urine Ketones Negative Urine Blood Negative Urine Nitrite Negative Urine Bilirubin Negative Urine Urobilinogen Negative Ur Leukocyte Esterase Negative 06/16/18 00:40 RBC 4.25 MCV 83.2 MCHC 33.0 RDW 13.4 MPV 8.9 Neutrophils % 63.4 Lymphocytes % 27.6 D Monocytes % 6.9 Eosinophils % 1.9 Basophils % 0.2 Medical Decision Making <Conrado Bennett - Last Filed: 06/16/18 01:40> <Elo Aly - Last Filed: 06/16/18 02:06> - Medical Decision Making 06/16/18 02:01 ekg nsr with no signs of ischmiea neg trop cbc no anemia,no leukocytosis chemistries unremarkable UA negative pt recently started injectable semaglutide and maybe having intermittent hypoglycemic episodes IMP PALPITATIONS, NEW MEDICATIONS PLAN return to her PCP this week (Elo Aly) *DC/Admit/Observation/Transfer <Conrado Bennett - Last Filed: 06/16/18 01:40> <Elo Aly - Last Filed: 06/16/18 02:06> Diagnosis at time of Disposition: Chest tightness - Discharge Dispostion Disposition: HOME Condition at time of disposition: Stable - Referrals Referrals: Femi Javier [Primary Care Provider] - - Patient Instructions Printed Discharge Instructions: DI for Atypical Chest Pain Additional Instructions: please follow up with your primary care physician this week return if you experience any worsening symptoms - Post Discharge Activity - Attestations Scribe Attestion: 06/16/18 01:37 Documentation prepared by Conrado Bennett, acting as territory sales manager medical for Elo Aly MD (Donald,Conrado Peraza)
[2018-06-16 01:48] LABS: URINE APPEARANCE CLOUDY; URINE BILIRUBIN NEGATIVE (<2.0 mg/dL); URINE COLOR YELLOW; URINE GLUCOSE (UA) NEGATIVE (NEGATIVE); URINE KETONE NEGATIVE (NEGATIVE); URINE LEUK ESTERASE NEGATIVE (NEGATIVE); URINE NITRITE NEGATIVE (NEGATIVE); URINE PROTEIN NEGATIVE (NEGATIVE); URINE UROBILINOGEN NEGATIVE mg/dL (0.2-1.0)
--- NOTE | 2018-06-17 16:31 | EKG ---
Test Reason : Blood Pressure : / mmHG Vent. Rate : 085 BPM Atrial Rate : 085 BPM P-R Int : 124 ms QRS Dur : 084 ms QT Int : 386 ms P-R-T Axes : 021 009 008 degrees QTc Int : 459 ms NORMAL SINUS RHYTHM MINIMAL VOLTAGE CRITERIA FOR LVH, MAY BE NORMAL VARIANT BORDERLINE ECG WHEN COMPARED WITH ECG OF 26-APR-2017 15:03, NO SIGNIFICANT CHANGE WAS FOUND Confirmed by Camden Donovan ([id number]) on 06/17/2018 4:31:29 PM Referred By: Confirmed By:Camden Donovan
== END 2018-06-16 02:08 | disposition home or self-care (01) ==
LOC: JER 23:06
DX: R07.89 Other chest pain (principal); E11.9 Type 2 diabetes mellitus without complications; R76.11 Nonspecific reaction to tuberculin skin test without active tuberculosis; Z91.013 Allergy to seafood; Z88.8 Allergy status to other drugs, medicaments and biological substances
CPT/HCPCS: 36415; 80053; 81003; 84484; 84703; 85025; 93005; 93010; 99283-25

== ENCOUNTER 2019-01-07 11:23 | Emergency (ER) | payer OTHER ==
[2019-01-07 11:30] VITALS: BP 123/61; PULSE 83; TEMP 98.7; BMI 34.7
[2019-01-07] MEDS ORDERED: MECLIZINE HCL 25 MG TABLET (FP) PO ONE (12:16)
[2019-01-07] MEDS ORDERED: MECLIZINE HCL 25 MG TABLET (FP) ONE (12:20)
--- NOTE | 2019-01-07 12:23 | PDOC ---
History of Present Illness - General Chief Complaint: Lightheaded Stated Complaint: RT EAR PAIN Time Seen by Provider: 01/07/19 12:09 - History of Present Illness Initial Comments: 01/07/19 12:17 48-year-old female with a past medical history of diabetes, she's also on some denies it for positive TB test presents for evaluation of dizziness 3 days. She does have a history of vertigo. No systemic symptoms. Past History - Past Medical History Allergies/Adverse Reactions: Allergies Allergy/AdvReac Type Severity Reaction Status Date / Time No Known Drug Allergies Allergy Verified 01/07/19 11:27 peanut Allergy Verified 01/07/19 11:27 shellfish derived Allergy Verified 01/07/19 11:27 Home Medications: Ambulatory Orders Budesonide [Rhinocort Allergy] 1 spray NS ONCE #1 spray.pump 01/07/19 Cetirizine HCl/Pseudoephedrine [Zyrtec-D Tablet] 1 each PO DAILY #30 tab.er.12h 01/07/19 Meclizine HCl [Antivert -] 12.5 mg PO TID PRN #21 tablet 01/07/19 Metformin HCl [Glucophage] 500 mg PO BID 01/07/19 Rifampin/Isoniazid [Rifamate Capsule] 1 each PO DAILY 01/07/19 Semaglutide [Ozempic] 1 mg SQ WEEKLY 01/07/19 Anemia: No Asthma: Yes Cancer: No Cardiac Disorders: No CVA: No COPD: No CHF: No DVT: No Dementia: No Diabetes: Yes (H/O 2010, BS UNDER CONTROL WITH DIET/EXERCISE) GI Disorders: No Disorders: No HTN: No Hypercholesterolemia: No Liver Disease: Yes ("fatty liver") Psychiatric Problems: Yes (ANXIETY) Seizures: No Thyroid Disease: No Other medical history: VERTIGO - Surgical History Abdominal Surgery: Yes (D&C FOR MISSED ABX2) Appendectomy: No Cardiac Surgery: No Cholecystectomy: No Lung Surgery: No Neurologic Surgery: No Orthopedic Surgery: No - Reproductive History (#): 11 Para: 5 Therapeutic (s) & number: Yes (3) Spontaneous : 3 - Immunization History Immunization Up to Date: Yes - Suicide/Smoking/Psychosocial Hx Smoking Status: Yes Smoking History: Former smoker Have you smoked in the past 12 months: No Number of Cigarettes Smoked Daily: 7 If you are a former smoker, when did you quit?: 6 MONTHS AGO Information on smoking cessation initiated: No 'Breaking Loose' booklet given: 08/03/17 Hx Alcohol Use: No Drug/Substance Use Hx: Yes (Marijuana) Substance Use Type: Marijuana Hx Substance Use Treatment: No Review of Systems - Review of Systems Constitutional: No: Fever HEENTM: Yes: Nose Congestion Respiratory: No: Cough Neurological: Yes: See HPI, Dizziness. No: Headache *Physical Exam - Vital Signs Last Vital Signs Temp Pulse Resp BP Pulse Ox 98.7 F 83 18 123/61 99 01/07/19 11:27 01/07/19 11:27 01/07/19 11:27 01/07/19 11:27 01/07/19 11:27 - Physical Exam Comments: 01/07/19 12:21 HEAD: NC/AT EYES: Conjuntiva clear Ears: Canals and TM's normal NOSE: No d/c THROAT: Moist mucous membrances, oral pharanx clear, uvula midline NECK: Supple without adenopathy CARDIAC: S1 S2 LUNGS: CTA Full and Equal breath sounds ABDOMEN: Soft NT ND MS: Full ROM in all joints without edema NEUROLOGIC: No gross sensory or motor deficits, NVID SKIN: Normal color and temperature no lesions or rashes Medical Decision Making - Medical Decision Making 01/07/19 12:21 48-year-old with with history of prior symptoms of vertigo. Usually related with an upper respiratory viral infection. She is requesting a prescription for meclizine which I'm happy to give her. This is typical of her usual symptoms as per her history. *DC/Admit/Observation/Transfer Diagnosis at time of Disposition: Upper respiratory infection, viral, Vertigo - Discharge Dispostion Disposition: HOME Condition at time of disposition: Stable Decision to Admit order: No - Referrals Referrals: Femi Javier [Primary Care Provider] - - Patient Instructions Printed Discharge Instructions: Vertigo, DI for Vertigo, DI for Viral Upper Respiratory Infection -- Adult Additional Instructions: Return to the emergency room for worsening symptoms. Please take the Antivert as directed and follow-up with your primary care physician in one to 2 days for further evaluation and treatment options.If you're dizziness is due to an upper respiratory infection I've given you a nasal spray as well as a decongestant which will help with those symptoms as well. You cannot take the decongestant with the meclizine Antivert. Try the decongestant first and if that doesn't help you 12 hours later you may take the Antivert. Only take the medication as directed do not take both at the same time. There needs to be a 12 hour From when he take the decongestant and meclizine. - Post Discharge Activity
== END 2019-01-07 12:27 | disposition home or self-care (01) ==
LOC: JERFT 11:23
DX: J06.9 Acute upper respiratory infection, unspecified (principal); R42 Dizziness and giddiness; Z87.891 Personal history of nicotine dependence; E11.9 Type 2 diabetes mellitus without complications; F41.9 Anxiety disorder, unspecified; K76.0 Fatty (change of) liver, not elsewhere classified
CPT/HCPCS: 99281-25

== ENCOUNTER 2019-01-09 11:19 | Emergency (ER) | payer OTHER ==
[2019-01-09 11:36] VITALS: BP 123/72; PULSE 85; TEMP 98.3; BMI 34.5
[2019-01-09] MEDS ORDERED: SODIUM CHLORIDE 1,000 ML IV STA (12:01)
[2019-01-09] MEDS ORDERED: ONDANSETRON 4 MG/2 ML VIAL IVPUSH ONE (12:01)
[2019-01-09] MEDS ORDERED: PANTOPRAZOLE SODIUM 40 MG in SODIUM CHLORIDE 100 ML IVPB ONE (12:01)
[2019-01-09] MEDS ORDERED: KETOROLAC TROMETHAMINE 30 MG/1 ML VIAL IVPUSH ONE (12:01)
--- NOTE | 2019-01-09 12:13 | PDOC ---
History of Present Illness <Kristine Desai - Last Filed: 01/09/19 13:01> - General History Source: Patient Exam Limitations: No Limitations - History of Present Illness Travel History: No Initial Comments: 01/09/19 12:08 48-year-old female presents here emergency room complaints of epigastric burning accompanied with nausea vomiting since yesterday evening. Patient states ate [employer] and within 6 hours symptoms began. Patient denies history of gallstones or kidney stones but does state had history of diverticulitis. Patient denies any bowel complaints. Patient denies fever, chills recent travel, or recent illness. Timing/Duration: reports: intermittent Quality: reports: mild, burning Abdominal Pain Onset Location: reports: epigastric Pain Radiation: reports: no radiation Activities at Onset: reports: none Aggravating Factors: improves with: None Alleviating Factors: improves with: None <Pat Tijerina - Last Filed: 01/13/19 13:42> - General Chief Complaint: Pain Stated Complaint: ABD PAIN Time Seen by Provider: 01/09/19 11:51 Past History <Kristine Desai - Last Filed: 01/09/19 13:01> - Travel Traveled outside of the country in the last 30 days: No Close contact w/someone who was outside of country & ill: No - Past Medical History Anemia: No Asthma: Yes Cancer: No Cardiac Disorders: No CVA: No COPD: No CHF: No DVT: No Dementia: No Diabetes: Yes (H/O 2010, BS UNDER CONTROL WITH DIET/EXERCISE) GI Disorders: No Disorders: No HTN: No Hypercholesterolemia: No Liver Disease: Yes ("fatty liver") Psychiatric Problems: Yes (ANXIETY) Seizures: No Thyroid Disease: No - Surgical History Abdominal Surgery: Yes (D&C FOR MISSED ABX2) Appendectomy: No Cardiac Surgery: No Cholecystectomy: No Lung Surgery: No Neurologic Surgery: No Orthopedic Surgery: No - Reproductive History (#): 11 Para: 5 Therapeutic (s) & number: Yes (3) Spontaneous : 3 - Immunization History Immunization Up to Date: Yes - Suicide/Smoking/Psychosocial Hx Smoking Status: Yes Smoking History: Former smoker Have you smoked in the past 12 months: No Number of Cigarettes Smoked Daily: 7 If you are a former smoker, when did you quit?: 6 MONTHS AGO Information on smoking cessation initiated: No 'Breaking Loose' booklet given: 08/03/17 Hx Alcohol Use: No Drug/Substance Use Hx: No Substance Use Type: Marijuana Hx Substance Use Treatment: No Patient Lives Alone: No Lives with/in: spouse/SO <Pat Tijerina - Last Filed: 01/13/19 13:42> - Past Medical History Allergies/Adverse Reactions: Allergies Allergy/AdvReac Type Severity Reaction Status Date / Time No Known Drug Allergies Allergy Verified 01/09/19 11:36 peanut Allergy Verified 01/09/19 11:36 shellfish derived Allergy Verified 01/09/19 11:36 Home Medications: Ambulatory Orders Metformin HCl [Glucophage] 500 mg PO BID 01/07/19 Rifampin/Isoniazid [Rifamate Capsule] 1 each PO DAILY 01/07/19 Ondansetron HCl [Zofran] 4 mg PO TID PRN #12 tablet 01/09/19 Review of Systems - Review of Systems Able to Perform ROS?: No Is the patient limited Sammarinese proficient: No Constitutional: No: Symptoms Reported HEENTM: No: Symptoms Reported Respiratory: No: Symptoms reported Cardiac (ROS): No: Symptoms Reported ABD/GI: Yes: Nausea, Vomiting, Abdominal cramping : No: Symptoms Reported Musculoskeletal: No: Symptoms Reported Integumentary: No: Symptoms Reported Neurological: No: Symptoms reported Endocrine: No: Symptoms Reported <Pat Tijerina - Last Filed: 01/13/19 13:42> *Physical Exam - Vital Signs Last Vital Signs Temp Pulse Resp BP Pulse Ox 98.3 F 85 18 123/72 100 01/09/19 11:34 01/09/19 11:34 01/09/19 11:34 01/09/19 11:34 01/09/19 11:34 <Kristine Desai - Last Filed: 01/09/19 13:01> - Vital Signs Last Vital Signs Temp Pulse Resp BP Pulse Ox 98.3 F 85 18 123/72 100 01/09/19 11:34 01/09/19 11:34 01/09/19 11:34 01/09/19 11:34 01/09/19 11:34 - Physical Exam General Appearance: Yes: Nourished, Appropriately Dressed. No: Apparent Distress HEENT: positive: EOMI, ЕЛЕНА, Pharynx Normal. negative: Pale Conjunctivae Neck: positive: Supple Respiratory/Chest: positive: Lungs Clear, Normal Breath Sounds. negative: Respiratory Distress, Accessory Muscle Use Cardiovascular: positive: Regular Rhythm, Regular Rate. negative: Murmur Gastrointestinal/Abdominal: positive: Soft, Tenderness (epigatric and lower periunmbilical) Integumentary: positive: Normal Color, Warm, Moist Neurologic: positive: Motor Strength 5/5 (ambulatory) <Pat Tijerina - Last Filed: 01/13/19 13:42> ED Treatment Course - LABORATORY CBC & Chemistry Diagram: 01/09/19 12:32 01/09/19 12:32 - ADDITIONAL ORDERS Additional order review: Laboratory Results 01/09/19 12:12 Urine Color Yellow Urine Appearance Clear Urine pH 5.5 Ur Specific [place] 1.021 Urine Protein Negative Urine Glucose (UA) Negative Urine Ketones Negative Urine Blood Negative Urine Nitrite Negative Urine Bilirubin Negative Urine Urobilinogen 0.2 Ur Leukocyte Esterase Negative Urine HCG, Qual Negative - Medications Given in the ED: ED Medications Discontinued Medications Generic Name Dose Route Start Last Admin Trade Name Freq PRN Reason Stop Dose Admin Pantoprazole Sodium 40 mg/ 100 mls @ 200 mls/hr 01/09/19 12:01 01/09/19 12:39 Sodium Chloride IVPB 01/09/19 12:30 200 mls/hr ONCE ONE Administration Sodium Chloride 1,000 mls @ 1,000 mls/hr 01/09/19 12:01 01/09/19 12:39 Normal Saline - IV 01/09/19 13:00 1,000 mls/hr ASDIR STA Administration Ketorolac Tromethamine 30 mg 01/09/19 12:01 01/09/19 12:40 Toradol Injection - IVPUSH 01/09/19 12:02 30 mg ONCE ONE Administration Ondansetron HCl 4 mg 01/09/19 12:01 01/09/19 12:40 Zofran Injection IVPUSH 01/09/19 12:02 4 mg ONCE ONE Administration <Kristine Desai - Last Filed: 01/09/19 13:01> - LABORATORY CBC & Chemistry Diagram: 01/09/19 12:32 01/09/19 12:32 <Pat Tijerina - Last Filed: 01/13/19 13:42> Medical Decision Making - Medical Decision Making The patient was seen and evaluated in conjunction with midlevel provider under my direct supervision, ancillary studies were reviewed. I agree with the plan as outlined by MILES Tijerina. HPI, workup/dispo as outlined. VS reviewed, wnl. labs and lytes, meds and reassess 01/09/19 13:01 <Kristine Desai - Last Filed: 01/09/19 13:01> - Medical Decision Making 01/09/19 12:47 CC: nausea vomiting upper abdominal cramping since last night at around 12 midnight. Patient still complaining of nausea and abdominal pain. Exam. Patient with epigastric and upper periumbilical tenderness Plan: Labs, urine, IV fluids, protonix, Zofran and Toradol 01/09/19 13:57 Laboratory Tests 01/09/19 12:32 Sodium 135 L Potassium 4.0 Chloride 103 Carbon Dioxide 27 Anion Gap 4 L BUN 10 Creatinine 0.5 L Random Glucose 89 Calcium 9.2 Total Bilirubin 0.4 AST 23 ALT 38 Alkaline Phosphatase 70 Total Protein 7.1 Albumin 3.6 Lipase 128 Laboratory Tests 01/09/19 12:32 WBC 12.0 H Hgb 12.0 Hct 37.0 Absolute Neuts (auto) 9.0 H Neutrophils % 75.3 Pt states feeling better. Will discharge home with Zofran. <Pat Tijerina - Last Filed: 01/13/19 13:42> *DC/Admit/Observation/Transfer <Kristine Desai - Last Filed: 01/09/19 13:01> <Pat Tijerina - Last Filed: 01/13/19 13:42> Diagnosis at time of Disposition: Nausea & vomiting - Discharge Dispostion Disposition: HOME Condition at time of disposition: Improved - Prescriptions Prescriptions: Ondansetron HCl [Zofran] 4 mg PO TID PRN #12 tablet PRN Reason: Nausea And/Or Vomiting - Referrals Referrals: Femi Javier [Primary Care Provider] - - Patient Instructions Printed Discharge Instructions: Nausea and Vomiting-Adult Additional Instructions: Please take Zofran as needed for nausea. Follow-up bland diet for the next 48 hours and advance as tolerated. If symptoms return or worsen please go to the nearest ER. otherwise follow-up with your doctor.
[2019-01-09] MEDS ORDERED: PANTOPRAZOLE SODIUM 40 MG/100 ML BAG IVPB ONE (12:20)
[2019-01-09] MEDS ORDERED: ONDANSETRON 4 MG/2 ML VIAL ONE (12:20)
[2019-01-09] MEDS ORDERED: KETOROLAC TROMETHAMINE 30 MG/1 ML VIAL ONE (12:20)
[2019-01-09 12:29] LABS: HCG,QUALITATIVE URINE Negative
[2019-01-09 12:30] LABS: PH,URINE 5.5 (5.0-8.0); URINE APPEARANCE CLEAR; URINE BILIRUBIN NEGATIVE (NEGATIVE); URINE COLOR YELLOW; URINE GLUCOSE (UA) NEGATIVE (NEGATIVE); URINE KETONE NEGATIVE (NEGATIVE); URINE LEUK ESTERASE NEGATIVE (NEGATIVE); URINE NITRITE NEGATIVE (NEGATIVE); URINE PROTEIN NEGATIVE (NEGATIVE); URINE UROBILINOGEN 0.2 mg/dL (0.2-1.0)
[2019-01-09 12:56] LABS: BASO % 0.7 % (0-2.0); EOS % 1.8 % (0-4.5); LYMPH % 16.5 % (8-40); MCHC 32.4 g/dl (32.0-36.0); MEAN CELL VOLUME 83.1 fl (80-96); MEAN PLT VOLUME 8.8 fl (7.5-11.1); MONO % 5.7 % (3.8-10.2); NEUT % 75.3 % (42.8-82.8); PLATELET COUNT 282 K/MM3 (134-434); RBC 4.45 M/mm3 (3.60-5.2); RDW 13.4 % (11.6-15.6)
[2019-01-09 13:19] LABS: ALBUMIN 3.6 g/dl (3.4-5.0); ALK PHOS 70 U/L (45-117); ANION GAP 4 MMOL/L (8-16); BILIRUBIN,TOTAL 0.4 mg/dL (0.2-1); BLOOD UREA NITROGEN 10 mg/dL (7-18); CALCIUM 9.2 mg/dL (8.5-10.1); CHLORIDE 103 mmol/L (98-107); CO2 27 mmol/L (21-32); CREATININE 0.5 mg/dL (0.55-1.3); GLUCOSE,RANDOM 89 mg/dL (74-106); LIPASE 128 U/L (73-393); SGOT/AST 23 U/L (15-37); SGPT/ALT 38 U/L (13-61); SODIUM 135 mmol/L (136-145); TOT PROT 7.1 g/dl (6.4-8.2)
== END 2019-01-09 14:06 | disposition home or self-care (01) ==
LOC: JER 11:19
PROC: 3E0333Z Introduction of Anti-inflammatory into Peripheral Vein, Percutaneous Approach (ICD-10-PCS; principal; 2019-01-09)
PROC: 3E033GC Introduction of Other Therapeutic Substance into Peripheral Vein, Percutaneous Approach (ICD-10-PCS; 2019-01-09)
PROC: 3E0337Z Introduction of Electrolytic and Water Balance Substance into Peripheral Vein, Percutaneous Approach (ICD-10-PCS; 2019-01-09)
DX: R11.2 Nausea with vomiting, unspecified (principal); Z87.891 Personal history of nicotine dependence; E11.9 Type 2 diabetes mellitus without complications; J45.909 Unspecified asthma, uncomplicated
CPT/HCPCS: 36415; 80053; 81003; 83690; 84703; 85025; 87086; 96361; 96365; 96375; 99282-25; J7030